=== PATIENT | female | born 1955 ===

== ENCOUNTER 2024-02-07 13:47 | Inpatient (IN) | payer MEDICARE ==
[~2024-02-07] VITALS: Ht 160 cm; Wt 63.0 kg
[2024-02-07 14:41] LABS: BASOPHILS % (AUTO) 0.5 % (0.0-2.0); EOSINOPHILS % (AUTO) 0.6 % (1.0-6.0); HEMATOCRIT 45.2 % (36-46); HEMOGLOBIN 14.8 g/dL (12.0-16.0); LYMPHOCYTES # (AUTO) 3.5 K/uL (1.0-4.8); LYMPHOCYTES % (AUTO) 42.3 % (22.0-44.0); MEAN CORPUSCULAR HEMOGLOBIN 33.4 pg (26.0-34.0); MEAN CORPUSCULAR HGB CONC 32.8 G/dL (31.0-37.0); MEAN CORPUSCULAR VOLUME 102 fL (80-100); MONOCYTES # (AUTO) 0.4 K/uL (0.1-1.0); MONOCYTES % (AUTO) 5.2 % (2.0-9.0); NEUTROPHILS # (AUTO) 4.2 K/uL (1.8-7.7); NEUTROPHILS % (AUTO) 51.4 % (40.0-70.0); PLATELET COUNT (AUTO) 192 K/uL (150-450); RED BLOOD CELL COUNT(AUTO) 4.44 MIL/uL (4.00-5.20); WHITE BLOOD COUNT (AUTO) 8.2 K/uL (4.5-11.0)
[2024-02-07 14:49] LABS: ANION GAP 13 mmol/L (8-16); CALCIUM, TOTAL 8.9 mg/dL (8.8-10.5); CARBON DIOXIDE 23 mmol/L (22-29); CHLORIDE 99 mmol/L (98-107); CREATININE 1.53 mg/dL (0.60-1.30); GLOMERULAR FILTR. RATE CALC 34 mL/min (>60); GLUCOSE,RANDOM 99 mg/dL (70-110); POTASSIUM 4.7 mmol/L (3.5-5.1); SODIUM SERUM 135 mmol/L (136-145); UREA NITROGEN, BLOOD 14 mg/dL (7-18)
[2024-02-07 14:56] LABS: ALANINE AMINOTRANSFERASE 94 U/L (12-78); ALBUMIN 4.1 g/dL (3.4-5.0); ALKALINE PHOSPHATASE 62 U/L (46-116); ASPARTATE AMINOTRANSFERASE 158 U/L (15-37); BILIRUBIN,TOTAL 1.1 mg/dL (0.1-1.0)
[2024-02-07 14:57] LABS: TROPONIN I-HIGH SENSITIVITY 16 ng/L (<51)
[2024-02-07 14:59] LABS: LACTIC ACID 2.3 mmol/L (0.4-2.0)
[2024-02-07] MEDS: SODIUM CHLORIDE 0.9% 1,000 ML IV ONE ×2 (15:11→16:18)
[2024-02-07 15:31] LABS: GLUCOMETER DEV NAME(LOC) ERT.5; GLUCOSE,POINT OF CARE 86 MG/DL (70-110)
[2024-02-07 16:40] LABS: THYROID STIMULATING HORMONE 93.63 uIU/mL (0.36-3.74)
[2024-02-07] MEDS: AmLODIPine BESYLATE 5 MG TABLET PO ONE (17:37)
[2024-02-07 18:21] VITALS: BP 115/86; PULSE 73; RESP 18; TEMP 98; O2SAT 98
[2024-02-07 20:26] VITALS: BP 141/83; PULSE 54; RESP 18; TEMP 96.1; O2SAT 100
[2024-02-07] MEDS ORDERED: MAGNESIUM HYDROXIDE SUSPENSION 30 ML UDCUP PO PRN (21:00)
[2024-02-07] MEDS ORDERED: ALBUTEROL SULFATE 2.5 MG/0.5 ML NEB SOLUTION NEB PRN (21:00)
[2024-02-07] MEDS ORDERED: BISACODYL 10 MG RECTAL RECTAL SUPPOSITORY PR PRN (21:00)
[2024-02-07] MEDS ORDERED: MORPHINE SULFATE 2 MG/ML SYRINGE IVP PRN (21:00)
[2024-02-07] MEDS ORDERED: ONDANSETRON HCL 4 MG/2 ML VIAL IVP PRN (21:00)
[2024-02-07] MEDS ORDERED: ZOLPIDEM TARTRATE 5 MG TABLET PO PRN (21:00)
[2024-02-07] MEDS ORDERED: HYDROCODONE/ACETAMINOPHEN 5-325 MG TABLET PO PRN (21:00)
[2024-02-07] MEDS ORDERED: ACETAMINOPHEN 325 MG TABLET PO PRN (21:00)
[2024-02-07] MEDS: DOCUSATE SODIUM 100 MG CAPSULE PO SCH (21:23)
[2024-02-07] MEDS: HEPARIN SODIUM,PORCINE 5,000 UNITS/ML VIAL SQ SCH (23:22)
[2024-02-08 01:26] LABS: FREE T4 (FREE THYROXINE) 0.15 ng/dL (0.76-1.46)
[2024-02-08] MEDS: SODIUM CHLORIDE 0.9% 1,000 ML IV ONE (01:30)
[2024-02-08 04:44] VITALS: BP 145/77; PULSE 56; RESP 18; TEMP 97.4; O2SAT 97
[2024-02-08] MEDS: LEVOTHYROXINE SODIUM 100 MCG TABLET PO SCH (07:14)
[2024-02-08] MEDS: PANTOPRAZOLE SODIUM 40 MG DR TABLET PO SCH (09:24)
[2024-02-08 09:25] VITALS: BP 143/76; PULSE 51; RESP 19; TEMP 97.8; O2SAT 98
[2024-02-08 16:38] VITALS: BP 144/70; PULSE 55; RESP 19; TEMP 98.2; O2SAT 98
[2024-02-08 19:23] VITALS: BP 132/91; PULSE 60; RESP 19; TEMP 97.6; O2SAT 96
[2024-02-09 04:31] VITALS: BP 136/90; PULSE 57; RESP 19; TEMP 97.4; O2SAT 96
[2024-02-09 06:31] LABS: BASOPHILS % (AUTO) 1.5 % (0.0-2.0); EOSINOPHILS % (AUTO) 0.7 % (1.0-6.0); HEMATOCRIT 44.1 % (36-46); HEMOGLOBIN 14.7 g/dL (12.0-16.0); LYMPHOCYTES # (AUTO) 2.1 K/uL (1.0-4.8); MEAN CORPUSCULAR HEMOGLOBIN 33.6 pg (26.0-34.0); MEAN CORPUSCULAR HGB CONC 33.3 G/dL (31.0-37.0); MEAN CORPUSCULAR VOLUME 101 fL (80-100); MONOCYTES # (AUTO) 0.4 K/uL (0.1-1.0); NEUTROPHILS # (AUTO) 4.6 K/uL (1.8-7.7); NEUTROPHILS % (AUTO) 62.8 % (40.0-70.0); PLATELET COUNT (AUTO) 168 K/uL (150-450); RED BLOOD CELL COUNT(AUTO) 4.38 MIL/uL (4.00-5.20); RED CELL DISTRIBUTION WIDTH 13.7 % (11.5-14.5); WHITE BLOOD COUNT (AUTO) 7.3 K/uL (4.5-11.0)
[2024-02-09 06:50] LABS: CREATININE 1.44 mg/dL (0.60-1.30); POTASSIUM 3.3 mmol/L (3.5-5.1)
[2024-02-09 08:41] VITALS: BP 131/89; PULSE 53; RESP 15; TEMP 91.2; O2SAT 97
[2024-02-09 16:01] VITALS: BP 107/60; PULSE 55; RESP 13; TEMP 96.2; O2SAT 98
[2024-02-09 19:30] VITALS: BP 118/79; PULSE 64; RESP 18; TEMP 98.3; O2SAT 98
[2024-02-09] MEDS: POTASSIUM CHLORIDE 20 MEQ ER TABLET PO ONE (23:32)
[2024-02-10] VITALS (10 sets, daily range): BP systolic 113–155; BP diastolic 69–100; PULSE 56–78; RESP 18–22; TEMP 97.3–98.4; O2SAT 89–99
[2024-02-10 07:47] LABS: POTASSIUM 3.7 mmol/L (3.5-5.1)
[2024-02-10] MEDS ORDERED: ALBUTEROL SULFATE 2.5 MG/0.5 ML NEB SOLUTION NEB PRN (11:15)
[2024-02-10] MEDS: SODIUM CHLORIDE 0.9% 1,000 ML IV ONE (16:55)
[2024-02-11 00:17] VITALS: BP 118/76; PULSE 59; RESP 18; O2SAT 98
[2024-02-11 06:02] VITALS: BP 138/94; PULSE 56; RESP 18; O2SAT 100
[2024-02-11 07:39] LABS: BASOPHILS % (AUTO) 0.6 % (0.0-2.0); EOSINOPHILS % (AUTO) 0.7 % (1.0-6.0); HEMATOCRIT 41.3 % (36-46); HEMOGLOBIN 13.5 g/dL (12.0-16.0); LYMPHOCYTES # (AUTO) 3.1 K/uL (1.0-4.8); LYMPHOCYTES % (AUTO) 39.9 % (22.0-44.0); MEAN CORPUSCULAR HEMOGLOBIN 33.5 pg (26.0-34.0); MEAN CORPUSCULAR HGB CONC 32.7 G/dL (31.0-37.0); MEAN CORPUSCULAR VOLUME 103 fL (80-100); MONOCYTES # (AUTO) 0.8 K/uL (0.1-1.0); MONOCYTES % (AUTO) 10.4 % (2.0-9.0); NEUTROPHILS # (AUTO) 3.7 K/uL (1.8-7.7); NEUTROPHILS % (AUTO) 48.4 % (40.0-70.0); PLATELET COUNT (AUTO) 160 K/uL (150-450); RED BLOOD CELL COUNT(AUTO) 4.02 MIL/uL (4.00-5.20); WHITE BLOOD COUNT (AUTO) 7.7 K/uL (4.5-11.0)
[2024-02-11 07:51] VITALS: BP 145/77; PULSE 59; RESP 18; TEMP 97.6; O2SAT 98
[2024-02-11 07:52] LABS: CALCIUM, TOTAL 8.2 mg/dL (8.8-10.5); CREATININE 1.18 mg/dL (0.60-1.30); POTASSIUM 3.7 mmol/L (3.5-5.1)
[2024-02-11 14:49] VITALS: BP 110/74; PULSE 59; RESP 18; TEMP 97.8; O2SAT 96
[2024-02-11 20:01] VITALS: BP 115/74; PULSE 56; RESP 16; TEMP 97.6; O2SAT 94
[2024-02-12 04:17] VITALS: BP 125/73; PULSE 54; RESP 18; TEMP 97.6; O2SAT 96
[2024-02-12 08:03] LABS: BASOPHILS % (AUTO) 0.5 % (0.0-2.0); EOSINOPHILS % (AUTO) 0.7 % (1.0-6.0); HEMATOCRIT 40.4 % (36-46); HEMOGLOBIN 13.3 g/dL (12.0-16.0); LYMPHOCYTES # (AUTO) 2.2 K/uL (1.0-4.8); LYMPHOCYTES % (AUTO) 33.5 % (22.0-44.0); MEAN CORPUSCULAR HEMOGLOBIN 33.6 pg (26.0-34.0); MEAN CORPUSCULAR VOLUME 102 fL (80-100); MONOCYTES # (AUTO) 0.4 K/uL (0.1-1.0); MONOCYTES % (AUTO) 6.5 % (2.0-9.0); NEUTROPHILS # (AUTO) 3.8 K/uL (1.8-7.7); NEUTROPHILS % (AUTO) 58.8 % (40.0-70.0); PLATELET COUNT (AUTO) 149 K/uL (150-450); RED BLOOD CELL COUNT(AUTO) 3.97 MIL/uL (4.00-5.20); RED CELL DISTRIBUTION WIDTH 14.2 % (11.5-14.5); WHITE BLOOD COUNT (AUTO) 6.4 K/uL (4.5-11.0)
[2024-02-12 08:23] LABS: CALCIUM, TOTAL 8.5 mg/dL (8.8-10.5); CREATININE 1.28 mg/dL (0.60-1.30); POTASSIUM 3.7 mmol/L (3.5-5.1)
[2024-02-12 08:26] VITALS: BP 129/74; PULSE 58; RESP 18; TEMP 97.6; O2SAT 97
[2024-02-12] MEDS: SODIUM CHLORIDE 0.9% 1,000 ML IV ONE (11:01)
[2024-02-12] MEDS ORDERED: PNEUMOCOCCAL VACCINE POLYVALENT 0.5 ML SYRINGE [PPSV23] IM. ONE (12:45)
[2024-02-12 19:00] VITALS: O2SAT 95
[2024-02-12 20:18] VITALS: BP 117/71; PULSE 65; RESP 18; TEMP 98.1; O2SAT 94
[2024-02-13 06:21] VITALS: BP 126/80; PULSE 56; RESP 18; TEMP 97.6; O2SAT 96
[2024-02-13 06:44] LABS: BASOPHILS % (AUTO) 0.7 % (0.0-2.0); EOSINOPHILS % (AUTO) 0.7 % (1.0-6.0); HEMOGLOBIN 13.2 g/dL (12.0-16.0); LYMPHOCYTES # (AUTO) 2.4 K/uL (1.0-4.8); LYMPHOCYTES % (AUTO) 40.6 % (22.0-44.0); MEAN CORPUSCULAR HEMOGLOBIN 33.5 pg (26.0-34.0); MEAN CORPUSCULAR VOLUME 102 fL (80-100); MONOCYTES # (AUTO) 0.4 K/uL (0.1-1.0); MONOCYTES % (AUTO) 6.5 % (2.0-9.0); NEUTROPHILS % (AUTO) 51.5 % (40.0-70.0); PLATELET COUNT (AUTO) 137 K/uL (150-450); RED BLOOD CELL COUNT(AUTO) 3.94 MIL/uL (4.00-5.20); RED CELL DISTRIBUTION WIDTH 14.2 % (11.5-14.5); WHITE BLOOD COUNT (AUTO) 5.8 K/uL (4.5-11.0)
[2024-02-13 06:59] LABS: CALCIUM, TOTAL 8.2 mg/dL (8.8-10.5); CREATININE 1.15 mg/dL (0.60-1.30); POTASSIUM 3.7 mmol/L (3.5-5.1)
[2024-02-13 07:06] LABS: RBC MORPHOLOGY COMMENT ABNORMAL RBC MORPH
[2024-02-13 08:12] VITALS: BP 143/94; PULSE 65; RESP 16; TEMP 98.2; O2SAT 98
[2024-02-13 09:13] VITALS: BP 143/94; PULSE 65; RESP 16; TEMP 98.2; O2SAT 98
[2024-02-13] MEDS ORDERED: LEVO100 PO (10:03)
== END 2024-02-13 15:50 | disposition home health service (06) | DRG 557 ==
LOC: EMS 13:47 → EDH 16:12 → 6S 18:06
PROVIDERS: ADMIT Internal Medicine; ATTEND Internal Medicine
DX: M62.82 Rhabdomyolysis (principal); G93.41 Metabolic encephalopathy; N17.0 Acute kidney failure with tubular necrosis; E87.20 Acidosis, unspecified; J98.11 Atelectasis; E86.0 Dehydration; E03.9 Hypothyroidism, unspecified; R09.02 Hypoxemia; J44.9 Chronic obstructive pulmonary disease, unspecified; Z91.148 Patient's other noncompliance with medication regimen for other reason
CPT/HCPCS: 70450; 71045; 80048; 80053; 82140; 82550; 82962; 83605; 84132; 84439; 84443; 84484; 85025; 93005; 97110; 97116; 97167; 97530; 97535; 99285; G0238; J1644; J7030; 36415-L1; 36415-TC